=== PATIENT | female | born 1975 | race Caucasian/White ===

== ENCOUNTER 2018-10-21 21:51 | Emergency (ER) | payer OTHER ==
[2018-10-21 22:06] VITALS: BP 148/85; PULSE 92; TEMP 98.2; BMI 42.0
--- NOTE | 2018-10-21 23:58 | PDOC ---
History of Present Illness - General Chief Complaint: Hematuria Stated Complaint: BLOOD IN URINE Time Seen by Provider: 10/21/18 23:11 History Source: Patient Exam Limitations: No Limitations - History of Present Illness Initial Comments: Pt is a 43 yo F, with PMH of HTN and DM, who is presenting with complaints of dysuria and urgency with urination x2 hours prior to presentation. Pt states she also noticed the urine had a "pink tinge," and her LMP was over 2 years ago , so is certain it came from the urine. She has 1 stable sexual partner and is not concerned about STI testing at this time. She denies any unusual or foul- smelling discharge, and no vaginal lesions or pain. Pt states she has never had a UTI or these symptoms before. Pt denies any fevers/chills, headache, vision changes, chest pain, palpitations, SOB, nausea/vomiting, abdominal pain, diarrhea/constipation, or leg swelling. Social: Pt denies any cigarette, alcohol, or drug use. Pt denies any recent travel or sick contacts. Surgical: (last 11 years ago) Family: kidney stones in father. DM and HTN throughout family. 10/22/18 00:27 Past History - Travel Traveled outside of the country in the last 30 days: No Close contact w/someone who was outside of country & ill: No - Past Medical History Allergies/Adverse Reactions: Allergies Allergy/AdvReac Type Severity Reaction Status Date / Time No Known Allergies Allergy Verified 10/21/18 22:06 Home Medications: Ambulatory Orders Pantoprazole Sodium [Protonix -] 40 mg PO DAILY #7 tablet.ec 10/02/16 Cephalexin [Keflex] 500 mg PO BID 5 Days #9 capsule 10/22/18 Phenazopyridine HCl [Pyridium] 100 mg PO BID 2 Days #4 tablet 10/22/18 COPD: No Diabetes: Yes HTN: Yes Hypercholesterolemia: No Kidney Stones: No Other medical history: enlarged heart - Surgical History Abdominal Surgery: Yes () GI Surgery: No - Suicide/Smoking/Psychosocial Hx Smoking Status: No Smoking History: Former smoker Have you smoked in the past 12 months: No Number of Cigarettes Smoked Daily: 0 If you are a former smoker, when did you quit?: 2010 Information on smoking cessation initiated: No Hx Alcohol Use: No Drug/Substance Use Hx: No Substance Use Type: None Review of Systems - Review of Systems Able to Perform ROS?: Yes Is the patient limited [place]ib[place]ian proficient: No Constitutional: Yes: Weight Stable. No: Chills, Diaphoresis, Fever, Loss of Appetite, Weakness HEENTM: No: Recent change in vision, Nose Congestion, Throat Swelling Respiratory: No: Cough, Shortness of Breath Cardiac (ROS): No: Chest Pain, Lightheadedness, Syncope ABD/GI: No: Abdominal Distended, Constipated, Diarrhea, Nausea, Poor Appetite, Poor Fluid Intake, Vomiting, Abdominal cramping : Yes: Burning, Dysuria, Hematuria, Pain, Urgency. No: Discharge, Frequency, Flank Pain, Incontinence Musculoskeletal: No: Back Pain, Joint Pain, Muscle Weakness Integumentary: No: Rash Neurological: No: Headache, Numbness, Unsteady Gait, Dizziness Psychiatric: No: Sleep Pattern Change, Change in Appetite Endocrine: No: Increased Urine, Change in Weight Hematologic/Lymphatic: No: Anemia, Blood Clots, Easy Bleeding, Easy Bruising All Other Systems: Reviewed and Negative *Physical Exam - Vital Signs Last Vital Signs Temp Pulse Resp BP Pulse Ox 98.2 F 92 H 20 148/85 97 10/21/18 22:01 10/21/18 22:01 10/21/18 22:01 10/21/18 22:01 10/21/18 22:01 - Physical Exam General Appearance: Yes: Nourished, Appropriately Dressed, Obese. No: Apparent Distress HEENT: positive: EOMI, [place], Normal ENT Inspection, Normal Voice, Pharynx Normal , Hearing Grossly Normal. negative: Scleral Icterus (R), Scleral Icterus (L), Pharyngeal Erythema, Tonsillar Exudate, Tonsillar Erythema, Nasal Congestion Neck: positive: Trachea midline, Normal Thyroid, Supple. negative: Tender, Rigid, Lymphadenopathy (R), Lymphadenopathy (L) Respiratory/Chest: positive: Lungs Clear, Normal Breath Sounds. negative: Chest Tender, Respiratory Distress, Accessory Muscle Use Cardiovascular: positive: Regular Rhythm, Regular Rate, S1, S2. negative: Edema , JVD, Murmur Vascular Pulses: Carotid (R): 4+, Carotid (L): 4+ Gastrointestinal/Abdominal: positive: Normal Bowel Sounds, Flat, Soft. negative : Tender, Organomegaly, Pulsatile Mass Rectal Exam: positive: deferred Lymphatic: negative: Adenopathy, Tenderness Musculoskeletal: positive: Normal Inspection. negative: CVA Tenderness Extremity: positive: Normal Capillary Refill, Normal Inspection, Normal Range of Motion, Pelvis Stable. negative: Tender, Pedal Edema Integumentary: positive: Normal Color, Dry, Warm. negative: Jaundice, Clammy, Diaphoresis, Swelling Neurologic: positive: manager of maintenance II-XII NML intact, Fully Oriented, Alert, Normal Mood/ Affect, Normal Response, Motor Strength 5/5 Moderate Sedation - Procedure Monitoring Vital Signs: Procedure Monitoring Vital Signs Temperature 98.2 F 10/21/18 22:01 Pulse Rate 92 H 10/21/18 22:01 Respiratory Rate 20 10/21/18 22:01 Blood Pressure 148/85 10/21/18 22: O2 Sat by Pulse Oximetry (%) 97 10/21/18 22:01 Medical Decision Making - Medical Decision Making Pt was seen at bedside, also will be seen by attending Dr. Gipson. Pt presenting with complaints of dysuria and urgency with urination x2 hours prior to presentation. Pt states she also noticed the urine had a "pink tinge," and her LMP was over 2 years ago, so is certain it came from the urine. She has 1 stable sexual partner and is not concerned about STI testing at this time. She denies any unusual or foul-smelling discharge, and no vaginal lesions or pain. Pt states she has never had a UTI or these symptoms before. Pt denies any fevers /chills, headache, vision changes, chest pain, palpitations, SOB, nausea/ vomiting, abdominal pain, diarrhea/constipation, or leg swelling. PE showed stable vital signs, afebrile. No abdominal or CVA tenderness. Considering acute cystitis vs pyelonephritis vs kidney stones. Minimal concern for pyelo as pt afebrile, no CVA tenderness. Ordered work-up including UA, urine culture, urine . Pt denying pain control at this time. Will continue to reassess pt and monitor for symptomatic improvement. 10/22/18 00:16 UA significant for urinary tract infection (+blood, +leuk esterase +WBCs/RBCs) Providing first dose of Keflex in ER, sent additional Keflex and pyridium to pt pharmacy. Pt can be discharged to home with follow-up. Pt advised to follow-up with PCP in 1-2 days. Strict return precautions provided with pt understanding. 10/22/18 01:06 *DC/Admit/Observation/Transfer Diagnosis at time of Disposition: Cystitis - Discharge Dispostion Disposition: HOME Condition at time of disposition: Good Decision to Admit order: No - Prescriptions Prescriptions: Cephalexin [Keflex] 500 mg PO BID 5 Days #9 capsule Phenazopyridine HCl [Pyridium] 100 mg PO BID 2 Days #4 tablet - Referrals Referrals: Marielos Welsh MD [Primary Care Provider] - - Patient Instructions Printed Discharge Instructions: DI for Acute Cystitis Additional Instructions: You were seen in the ER today for burning with urination. The results of your labs today showed a urinary tract infection. Please follow-up with your primary care doctor within 1-2 days to discuss your visit and make sure your symptoms have improved. Please return to the ER if you have any worsening pain or pain that begins to radiate to your back, development of fevers or chills, loss of consciousness, inability to tolerate food or fluids, or any other concerns. We have sent an antibiotic (Keflex) and another medication (pyridium) to help with the discomfort with urination. Please take these medicines as prescribed. - Post Discharge Activity
[2018-10-22 00:33] LABS: URINE APPEARANCE SLCLOUDY; URINE BILIRUBIN NEGATIVE (<2.0 mg/dL); URINE COLOR LTYELLOW; URINE GLUCOSE (UA) NEGATIVE (NEGATIVE); URINE KETONE NEGATIVE (NEGATIVE); URINE LEUK ESTERASE 2+ (NEGATIVE); URINE NITRITE NEGATIVE (NEGATIVE); URINE PROTEIN NEGATIVE (NEGATIVE); URINE UROBILINOGEN NEGATIVE mg/dL (0.2-1.0)
[2018-10-22 00:42] LABS: HCG,QUALITATIVE URINE Negative
--- NOTE | 2018-10-22 00:45 | PDOC ---
Attending Attestation - Resident Resident Name: Judy Butts - ED Attending Attestation I have performed the following: I have examined & evaluated the patient, The case was reviewed & discussed with the resident, I agree w/resident's findings & plan - HPI HPI: 10/22/18 00:58 43 yo F, with PMH of HTN and DM, who is presenting with complaints of dysuria and urgency with urination x2 hours prior to presentation, a/w pink tinge when she wipes and urinates.. +suprapubic AP and lower back pain. LMP was over 2 years ago, so is certain it came from the urine. She has 1 stable sexual partner and is not concerned about STI testing at this time. no discharge or foul odor. no f/c, flank pain, vomiting or GI sx. 10/22/18 00:59 - Physicial Exam PE: 10/22/18 00:57 NAD, well appearing, PERRL, EOMI, MMM, nl conjunctiva, anicteric; neck supple. lungs clear, RRR, abdomen soft nontender. no CVAT. No peripheral edema. normal color for ethnicity, WWP. 10/22/18 00:57 - Medical Decision Making 10/22/18 00:59 hpi as documented VS wnl. no fever nonperitoneal, well appearing, nontoxic UA prelim +leuk esterase, copious WBCs and clinically UTI sx. rx pyridium for dysuria and keflex x 5 days first dose here return precautions given, such as s/s worsening infection/pyelo f/u urine culture. PCP followup pt verbalized understanding of impression and plan
[2018-10-22 00:54] LABS: EPI CELLS RARE /HPF (FEW); URINE BACTERIA MODERATE /hpf (NONE SEEN); URINE MUCUS RARE
[2018-10-22] MEDS ORDERED: CEPHALEXIN MONOHYDRATE 500 MG CAPSULE (UD) PO ONE (01:05)
[2018-10-22] MEDS ORDERED: CEPHALEXIN MONOHYDRATE 500 MG CAPSULE (UD) ONE (01:45)
== END 2018-10-22 01:50 | disposition home or self-care (01) ==
LOC: JERFT 21:51 → JER 21:51
DX: N30.00 Acute cystitis without hematuria (principal); I10 Essential (primary) hypertension; E11.9 Type 2 diabetes mellitus without complications
CPT/HCPCS: 81003; 81015; 84703; 87086; 87186; 99282-25

== ENCOUNTER 2019-05-06 10:00 | Inpatient (IN) | payer OTHER ==
[2019-04-26 11:22] VITALS: BMI 43.0
--- NOTE | 2019-05-06 13:24 | HP ---
Admitting History and Physical - Admission Chief Complaint: Morbid obesity History Source: Patient Limitations to Obtaining History: No Limitations - Past Medical History Cardiovascular: Yes: HTN ...LMP Comment: Aug 16 ...: No Endocrine: Yes: Diabetes Mellitus - Smoking History Smoking history: Former smoker Have you smoked in the past 12 months: No Aproximately how many cigarettes per day: 0 If you are a former smoker, when did you quit?: 2010 - Alcohol/Substance Use Hx Alcohol Use: No Home Medications - Allergies Allergies/Adverse Reactions: Allergies Allergy/AdvReac Type Severity Reaction Status Date / Time No Known Allergies Allergy Verified 05/06/19 11:42 - Home Medications Home Medications: Ambulatory Orders Amlodipine Besylate [Norvasc -] 10 mg PO DAILY 04/26/19 Biotin 10,000 mcg PO DAILY 04/26/19 Butalb/Acetaminophen/Caffeine [Swipjt-Nogujhhh-Afvd 50-300-40] 1 each PO PRN PRN 04/26/19 Hydrochlorothiazide [Hctz -] 25 mg PO ASDIR 04/26/19 Metformin HCl [Glucophage] 500 mg PO BID 04/26/19 Mv-Mins/Folic Acid/Guarana/Caf [One Daily Tablet] 1 each PO DAILY 04/26/19 Omeprazole Magnesium [Prilosec Otc] 20 mg PO PRN PRN 04/26/19 Docusate Sodium [Colace -] 100 mg PO TID #90 capsule 05/06/19 Famotidine [Pepcid] 20 mg PO BID #60 tablet 05/06/19 Ondansetron [Zofran -] 8 mg PO Q6H PRN #30 tablet 05/06/19 Oxycodone HCl/Acetaminophen [Percocet 5-325 mg Tablet] 1 - 2 tab PO Q6H #28 tab MDD 4 05/06/19 Review of Systems - Review of Systems Constitutional: denies: Chills, Fever Neck: reports: No Symptoms Cardiovascular: reports: No Symptoms Respiratory: reports: No Symptoms Gastrointestinal: reports: No Symptoms Neurological: reports: No Symptoms Pain Intensity: 0 Physical Examination Vital Signs: Vital Signs Temperature 98.0 F 05/06/19 11:46 Pulse Rate 88 05/06/19 11:46 Respiratory Rate 16 05/06/19 11:46 Blood Pressure 128/79 05/06/19 11:46 O2 Sat by Pulse Oximetry (%) 97 05/06/19 11:54 Constitutional: Yes: Calm Neck: Yes: WNL Cardiovascular: Yes: WNL Respiratory: Yes: Regular Gastrointestinal: Yes: Soft, Abdomen, Obese Neurological: Yes: Alert, Oriented Problem List - Problems (1) Morbid obesity due to excess calories Code(s): E66.01 - MORBID (SEVERE) OBESITY DUE TO EXCESS CALORIES (2) BMI 40.0-44.9, adult Code(s): Z68.41 - BODY MASS INDEX (BMI) 40.0-44.9, ADULT (3) Hypertension Code(s): I10 - ESSENTIAL (PRIMARY) HYPERTENSION (4) Diabetes mellitus type 2 in obese Code(s): E11.69 - TYPE 2 DIABETES MELLITUS WITH OTHER SPECIFIED COMPLICATION; E66.9 - OBESITY, UNSPECIFIED Assessment/Plan Laparoscopic possible open vertical sleeve gastrectomy possible liver biopsy upper endoscopy
[2019-05-06] MEDS ORDERED: ROPIVACAINE HCL 0.5% 30ML VIAL ONE (13:52)
[2019-05-06] MEDS ORDERED: MIDAZOLAM HCL 2 MG/2 ML SINGLE DOSE VIAL ONE (13:52)
[2019-05-06] MEDS ORDERED: PROPOFOL 20 ML ONE ×2 (14:01→15:34)
[2019-05-06] MEDS ORDERED: fentaNYL CITRATE 250 MCG/5 ML VIAL ONE (14:01)
[2019-05-06] MEDS ORDERED: ROCURONIUM BROMIDE 50 MG/5 ML VIAL ONE (14:01)
[2019-05-06] MEDS ORDERED: ONDANSETRON 4 MG/2 ML VIAL ONE (14:35)
[2019-05-06] MEDS ORDERED: DEXAMETHASONE SOD PHOSPHATE 4 MG/1 ML VIAL ONE (14:35)
[2019-05-06] MEDS ORDERED: ceFAZolin SODIUM 1 GM VIAL ONE (14:35)
[2019-05-06] MEDS ORDERED: NEOSTIGMINE METHYLSULFATE 0.5 MG/ML - 10 ML MDV ONE (15:26)
[2019-05-06] MEDS ORDERED: GLYCOPYRROLATE 0.2 MG/1 ML VIAL ONE ×2 (15:26→15:31)
[2019-05-06] MEDS ORDERED: BUPIVACAINE HCL/PF 0.25% (2.5MG/ML) 10 ML VIAL IJ ONE (15:26)
--- NOTE | 2019-05-06 15:31 | CONSULT ---
Consult Consult Specialty:: IM Reason for Consultation:: medical management - History of Present Illness Chief Complaint: weakness, anxiety. denies chest pain, SOB, palpittaions, nausea, vomiting, diarrhea, fever - History Source History Provided By: Patient Limitations to Obtaining History: No Limitations - Past Medical History Cardio/Vascular: Yes: HTN ...LMP Comment: Aug 16 ...: No Endocrine: Yes: Diabetes Mellitus - Alcohol/Substance Use Hx Alcohol Use: No - Smoking History Smoking history: Former smoker Have you smoked in the past 12 months: No Aproximately how many cigarettes per day: 0 If you are a former smoker, when did you quit?: 2010 Home Medications - Allergies Allergies/Adverse Reactions: Allergies Allergy/AdvReac Type Severity Reaction Status Date / Time No Known Allergies Allergy Verified 05/06/19 11:42 - Home Medications Home Medications: Ambulatory Orders Amlodipine Besylate [Norvasc -] 10 mg PO DAILY 04/26/19 Biotin 10,000 mcg PO DAILY 04/26/19 Butalb/Acetaminophen/Caffeine [Sqeawv-Umuhvrlq-Tgca 50-300-40] 1 each PO PRN PRN 04/26/19 Hydrochlorothiazide [Hctz -] 25 mg PO ASDIR 04/26/19 Metformin HCl [Glucophage] 500 mg PO BID 04/26/19 Mv-Mins/Folic Acid/Guarana/Caf [One Daily Tablet] 1 each PO DAILY 04/26/19 Omeprazole Magnesium [Prilosec Otc] 20 mg PO PRN PRN 04/26/19 Docusate Sodium [Colace -] 100 mg PO TID #90 capsule 05/06/19 Famotidine [Pepcid] 20 mg PO BID #60 tablet 05/06/19 Ondansetron [Zofran -] 8 mg PO Q6H PRN #30 tablet 05/06/19 Oxycodone HCl/Acetaminophen [Percocet 5-325 mg Tablet] 1 - 2 tab PO Q6H #28 tab MDD 4 05/06/19 Review of Systems - Review of Systems Constitutional: reports: No Symptoms Eyes: reports: No Symptoms HENT: reports: No Symptoms Neck: reports: No Symptoms Cardiovascular: reports: No Symptoms Respiratory: reports: No Symptoms Gastrointestinal: reports: No Symptoms Genitourinary: reports: No Symptoms Musculoskeletal: reports: No Symptoms Integumentary: reports: No Symptoms Neurological: reports: No Symptoms Hematology/Lymphatic: reports: No Symptoms Psychiatric: reports: No Symptoms Physical Exam Vital Signs: Vital Signs Temperature 98.0 F 05/06/19 11:46 Pulse Rate 88 05/06/19 11:46 Respiratory Rate 16 05/06/19 11:46 Blood Pressure 128/79 05/06/19 11:46 O2 Sat by Pulse Oximetry (%) 97 05/06/19 11:54 Constitutional: Yes: Well Nourished, No Distress, Obese Eyes: Yes: WNL HENT: Yes: WNL Neck: Yes: WNL Cardiovascular: Yes: WNL Respiratory: Yes: WNL Gastrointestinal: Yes: WNL Renal/: Yes: WNL Musculoskeletal: Yes: WNL Extremities: Yes: WNL Edema: No Integumentary: Yes: WNL Neurological: Yes: WNL ...Motor Strength: WNL Psychiatric: Yes: WNL Assessment/Plan 44 yo lady with morbid obesity. came in for gastric sleeve with Dr Roper. pain management. incentive spirometry. -GI, DVT prophylaxis. -HTN: on amlodipine 10 mg daily, -type 2 DM: on RISS. will resume oral meds when oral feeding restarted. -will f/u with blood work. -meds reviewed -assessment and plan discussed with pt.
--- NOTE | 2019-05-06 15:38 | OP ---
Operative Note - Note: Operative Date: 05/06/19 Pre-Operative Diagnosis: Morbid obesity. BMI 43. Hypertension. Diabetes mellitus type 2 Operation: Laparoscopic vertical sleeve gastrectomy. Laparoscopic wedge liver biopsy Post-Operative Diagnosis: Same as Pre-op (as well as hepatomegaly) Surgeon: Ed Roper [place] [employer] Supervisor: Khalif Salazar Anesthesia: General Specimens Removed: Greater curvature of stomach. Liver biopsy Estimated Blood Loss (mls): 30 Drains & Tubes with Location: 36 Fr Bougie Operative Report Dictated: Yes
[2019-05-06] MEDS ORDERED: METOCLOPRAMIDE HCL INJECTION 10 MG/2 ML VIAL IVPUSH SCH (15:45)
[2019-05-06] MEDS ORDERED: ACETAMINOPHEN 1000 MG/100 ML VIAL (NON FORMULARY) IVPB SCH (15:45)
[2019-05-06] MEDS ORDERED: PROMETHAZINE HCL 25 MG/1 ML VIAL IVPUSH PRN (16:01)
[2019-05-06] MEDS ORDERED: ONDANSETRON 4 MG/2 ML VIAL IVPUSH PRN (16:01)
[2019-05-06] MEDS ORDERED: oxyCODONE HCL 5 MG TABLET PO PRN ×2 (16:01)
[2019-05-06] MEDS ORDERED: METOCLOPRAMIDE HCL INJECTION 10 MG/2 ML VIAL ONE (16:14)
[2019-05-06] MEDS ORDERED: ACETAMINOPHEN INJECTION 200 ML IVPB ONE (16:14)
[2019-05-06 16:25] LABS: HEMOGLOBIN 15.2 GM/dl (10.7-15.3); MCHC 33.8 g/dl (32.0-36.0); MEAN CELL VOLUME 94.5 fl (80-96); MEAN PLT VOLUME 8.5 fl (7.5-11.1); PLATELET COUNT 295 K/MM3 (134-434); RBC 4.77 M/mm3 (3.60-5.2); RDW 12.3 % (11.6-15.6); WHITE BLOOD COUNT 10.5 K/mm3 (4.0-10.8)
[2019-05-06 16:43] LABS: ALBUMIN 3.6 g/dl (3.4-5.0); BILIRUBIN,TOTAL 0.9 mg/dl (0.2-1); CALCIUM 8.7 mg/dl (8.5-10); CREATININE 0.8 mg/dl (0.55-1.3); POTASSIUM 3.5 mmol/L (3.5-5.1); TOT PROT 7.8 g/dl (6.4-8.2)
[2019-05-06] MEDS ORDERED: FAMOTIDINE 20 MG PREMIXED IVPB IVPB ONE (16:43)
[2019-05-06] MEDS ORDERED: FAMOTIDINE 20 MG/50 ML IVPB 20 MG/50 ML MG IVPB ONE (16:46)
[2019-05-06] MEDS: ENOXAPARIN NA (PORCINE) 40 MG/0.4 ML DISP.SYRIN SQ SCH (21:26)
[2019-05-06] MEDS: ONDANSETRON 4 MG/2 ML VIAL IVPUSH SCH ×2 (21:27→22:59)
[2019-05-06] MEDS: METOCLOPRAMIDE HCL INJECTION 10 MG/2 ML VIAL IVPUSH SCH (21:27)
[2019-05-06] MEDS: ACETAMINOPHEN 1000 MG/100 ML VIAL (NON FORMULARY) IVPB SCH (21:27)
--- NOTE | 2019-05-06 21:34 | SPEC ---
DATE OF OPERATION: 05/06/2019 SURGEON: Ed Roper MD W[employer] MECHANICAL ENGINEER: Khalif Salazar MD PLACE OF SERVICE: [facility], [address] [place] [address] PREOPERATIVE DIAGNOSES: 1. Morbid obesity. 2. Hypertension. 3. Diabetes mellitus, type 2. 4. Body mass index of 43. POSTOPERATIVE DIAGNOSES: 1. Morbid obesity. 2. Hypertension. 3. Diabetes mellitus, type 2. 4. Body mass index of 43. 5. Hepatomegaly. PROCEDURE: 1. Diagnostic laparoscopy. 2. Laparoscopic vertical sleeve gastrectomy. 3. Laparoscopic wedge liver biopsy. ESTIMATED BLOOD LOSS: 30 mL. DRAINS: None. ANESTHESIA: GET. BOUGIE: Size 36-Romansh. REASON FOR PROCEDURE: This is a 44-year-old female who presented for weight loss options. After describing different options, she decided to proceed with laparoscopic, possible open vertical sleeve gastrectomy, possible liver biopsy, upper endoscopy. RISKS AND BENEFITS: After describing the different options for weight loss management, the patient decided to proceed with a laparoscopic, possible open vertical sleeve gastrectomy. The patient was seen by the respective subspecialties and cleared for surgery. The risks and benefits of the procedure were explained. These included bleeding, infection, hernia, [place], DVT, PE, injury to surrounding structures including the liver, colon, bowel, spleen, esophagus, vessel injury, nerve injury, weight regain, gastric leak, staple line leak, sleeve leak, obstruction, vitamin deficiency, hair loss and as some of the possible complications. The patient understood and signed informed consent. DESCRIPTION OF PROCEDURE: The patient was placed supine on the operating room table. The patient underwent general endotracheal intubation. The arms were brought out at 90 degrees and secured. A footboard was placed and the legs were secured laterally with padding. The abdomen was prepped and draped in the usual sterile fashion. A timeout was performed. An incision was made in the left upper quadrant and a Veress needle inserted. Pneumoperitoneum was established. Subsequently, the Veress needle was removed and a 5-mm trocar was placed under direct visualization with the laparoscope. The laparoscopic camera was then inserted and inspection of the abdominal cavity was performed. An incision was then made in the supraumbilical area and a 15-mm trocar was placed under direct visualization. A 5-mm trocar was then placed in the right upper quadrant and a 5-mm trocar was placed below the left subcostal margin. A stab wound was made in the subxiphoid area and a Chel clamp inserted and removed to dilate the tract. A Keshav liver retractor was inserted. The post was secured at the bedside by the nursing staff. The patient was placed in steep reverse Trendelenburg position and the Keshav liver retractor was used to secure the liver towards the anterior abdominal wall. The pylorus was identified and 6 cm proximal to it, the lesser sac was entered using the LigaSure device. All lateral attachments to the greater curvature of the stomach, including the short gastric vessels, were ligated using the LigaSure device toward the gastrosplenic and gastrophrenic ligaments. Once this was done in its entirety, it was confirmed that all tubes within the nasal or oropharyngeal cavity, including a temperature probe were removed by Anesthesia. The bougie was then inserted by Anesthesia. Transection of the stomach was then begun staying adjacent to the bougie but away from the angularis. Transection of the stomach was performed near the portion of the stomach where the lesser sac was entered. Two laparoscopic Endo-SUZAN black duke were used at this location. Laparoscopic Endo SUZAN purple staple loads were then used for the remainder of the transection until the greater curvature of the stomach was fully transected. This was done staying close to the bougie. Care was taken to stay away from the angle of His cephalad. The staple line was then inspected. Hemostasis was identified. A leak test was then performed. It was clamped distally to the staple line. Irrigation solution was placed in the left upper quadrant and air was insufflated by Anesthesia into the sleeve. No leaks were identified. No obstruction was identified. This was done through the entirety of the staple line. The stomach was suctioned and the bougie removed fully intact under direct visualization. At this point, the irrigation solution was suctioned and again, hemostasis was noted. A wedge liver biopsy was then performed. The left lobe of the liver was identified. A portion of the edge of the left lobe of the liver was grasped. Using electrocautery, a wedge of the left liver was excised. The specimen was removed and sent off the field. Hemostasis of the wedge liver biopsy site was attained and noted using electrocautery. The 15-mm supraumbilical trocar was then removed and the greater curvature specimen removed from the site using a sponge stick carvajal. A Noe-Wes device was then used to close the fascia with a 0 Vicryl suture at the site. Again, hemostasis was noted. The Keshav liver retractor was then removed under direct visualization. Pneumoperitoneum was desufflated. Hemostasis was noted at all incision sites and Marcaine was injected at all incision sites. A 3-0 Vicryl suture was used to close the deep subcutaneous tissue at the 15-mm incision site. All incision sites were closed using 4-0 Biosyn. Sterile dressings were applied. The patient tolerated the procedure well and was transferred to the recovery room in stable condition. Gaby BEAVER/[id number]
[2019-05-06] MEDS ORDERED: FAMOTIDINE 20 MG/50 ML IVPB 20 MG/50 ML MG IVPB SCH (22:00)
[2019-05-06] MEDS: HYDROmorphone HCl 2 MG/ML VIAL IVPB PRN (23:06)
[2019-05-07] MEDS: METOCLOPRAMIDE HCL INJECTION 10 MG/2 ML VIAL IVPUSH SCH ×3 (04:00→16:02)
[2019-05-07] MEDS: ONDANSETRON 4 MG/2 ML VIAL IVPUSH SCH ×5 (04:00→16:03)
[2019-05-07] MEDS: ACETAMINOPHEN 1000 MG/100 ML VIAL (NON FORMULARY) IVPB SCH ×2 (04:00→09:50)
[2019-05-07] MEDS: FAMOTIDINE 20 MG/50 ML IVPB 20 MG/50 ML MG IVPB SCH ×2 (06:09→16:24)
[2019-05-07] MEDS: INSULIN SLIDING SCALE (NOVOLOG) 1 VIAL SQ SCH ×4 (06:29→16:04)
[2019-05-07] MEDS ORDERED: INSULIN (NOVOLOG) ASPART 100 UNITS/ML 10ML VIAL ONE (06:35)
[2019-05-07 08:07] LABS: ALBUMIN 2.9 g/dl (3.4-5.0); BILIRUBIN,TOTAL 1.3 mg/dl (0.2-1); CALCIUM 7.9 mg/dl (8.5-10); CREATININE 0.9 mg/dl (0.55-1.3); HEMATOCRIT 34.7 % (32.4-45.2); HEMOGLOBIN 11.9 GM/dl (10.7-15.3); MCH 32.6 pg (25.7-33.7); MCHC 34.4 g/dl (32.0-36.0); MEAN CELL VOLUME 94.7 fl (80-96); MEAN PLT VOLUME 9.1 fl (7.5-11.1); PLATELET COUNT 307 K/MM3 (134-434); POTASSIUM 4.8 mmol/L (3.5-5.1); RBC 3.66 M/mm3 (3.60-5.2); TOT PROT 6.6 g/dl (6.4-8.2); WHITE BLOOD COUNT 13.5 K/mm3 (4.0-10.8)
[2019-05-07] MEDS: SODIUM CHLORIDE 1,000 ML IV SCH ×2 (08:42→16:02)
--- NOTE | 2019-05-07 09:41 | PN ---
Progress Note, Physician Chief Complaint: dizziness, weakness - Current Medication List Current Medications: Active Medications Acetaminophen (Ofirmev Injection -) 1,000 mg IVPB Q6H [facility] Stop: 05/07/19 10:01 Last Admin: 05/07/19 04:00 Dose: 1,000 mg Enoxaparin Sodium (Lovenox -) 40 mg SQ BID [facility] Last Admin: 05/06/19 21:26 Dose: 40 mg Hydromorphone HCl (Dilaudid Vial -) 1 mg IVPB Q3H PRN PRN Reason: PAIN LEVEL 4 - 6 Last Admin: 05/06/19 23:06 Dose: 1 mg Sodium Chloride (Normal Saline -) 1,000 mls @ 150 mls/hr IV ASDIR [facility] Last Admin: 05/07/19 08:42 Dose: Not Given Famotidine/Sodium Chloride (Pepcid 20 Mg Premixed Ivpb -) 20 mg in 50 mls @ 100 mls/hr IVPB Q12H [facility] Last Admin: 05/07/19 06:09 Dose: 100 mls/hr Insulin Aspart (Novolog Vial Sliding Scale -) 1 vial SQ TIDAC [facility]; Protocol Last Admin: 05/07/19 08:42 Dose: Not Given Metoclopramide HCl (Reglan Injection -) 10 mg IVPUSH Q6H [facility] Last Admin: 05/07/19 04:00 Dose: 10 mg Ondansetron HCl (Zofran Injection) 4 mg IVPUSH Q4H [facility] Last Admin: 05/07/19 08:42 Dose: Not Given Oxycodone HCl (Roxicodone -) 5 mg PO Q4H PRN PRN Reason: PAIN LEVEL 1-5 Oxycodone HCl (Roxicodone -) 10 mg PO Q4H PRN PRN Reason: PAIN LEVEL 6-10 - Objective Vital Signs: Vital Signs Temperature 98.2 F 05/07/19 06:00 Pulse Rate 105 H 05/07/19 06:00 Respiratory Rate 05/07/19 06:00 Blood Pressure 101/70 05/07/19 06:00 O2 Sat by Pulse Oximetry (%) 96 05/07/19 06:00 Constitutional: Yes: Anxious, Obese Eyes: Yes: WNL HENT: Yes: WNL Neck: Yes: WNL Cardiovascular: Yes: WNL Respiratory: Yes: WNL Gastrointestinal: Yes: WNL Genitourinary: Yes: WNL Musculoskeletal: Yes: WNL Extremities: Yes: WNL Edema: No Peripheral Pulses WNL: Yes Integumentary: Yes: WNL Neurological: Yes: WNL ...Motor Strength: WNL Psychiatric: Yes: WNL Labs: CBC, BMP 05/07/19 06:57 05/07/19 06:57 Assessment/Plan 44 yo lady with morbid obesity. came in for gastric sleeve with Dr Roper. pain management. incentive spirometry. today c/o dizziness, weakness. unable to get out of bed. cont IV fluids. amlodipine held due to hypotension. -GI, DVT prophylaxis. -type 2 DM: on RISS. will resume oral meds when oral feeding restarted. -will f/u with blood work. -meds reviewed -assessment and plan discussed with pt. and Dr Roper.
[2019-05-07] MEDS: ENOXAPARIN NA (PORCINE) 40 MG/0.4 ML DISP.SYRIN SQ SCH (09:50)
[2019-05-07] MEDS ORDERED: amLODIPine BESYLATE 10 MG TABLET (FP) PO SCH (10:00)
[2019-05-07] MEDS ORDERED: MECLIZINE HCL 25 MG TABLET (FP) PO ONE (11:43)
[2019-05-07 15:39] VITALS: BP 116/71; PULSE 97; TEMP 97.5
[2019-05-07] MEDS: HYDROmorphone HCl 2 MG/ML VIAL IVPB PRN (16:03)
[2019-05-07 16:29] LABS: CREATININE 1.1 mg/dl (0.55-1.3); POTASSIUM 4.5 mmol/L (3.5-5.1)
--- NOTE | 2019-05-09 14:30 | PATH ---
Surgical Pathology Report Patient Name: LOUIE FIORE Med. Rec. #: [id number] /Age/Gender: 1975 (Age: 44) / F Account: [id number] Location: [facility] Taken: 05/06/2019 Received: 05/06/2019 Reported: 05/09/2019 Physicians: Ed Roper M.D. Specimen(s) Received A: GREATER CURVATURE STOMACH B: LIVER BIOPSY Clinical History Morbid obesity Final Diagnosis A. GREATER CURVATURE OF STOMACH , LAPAROSCOPIC GASTRIC SLEEVE EXCISION: PORTION OF STOMACH SHOWING MINIMAL CHRONIC MUCOSAL INFLAMMATION. IMMUNOSTAIN IS NEGATIVE FOR H. PYLORI ORGANISMS. B. LIVER, BIOPSY: LIVER SHOWING MODERATE STEATOSIS (~25%). TRICHROME STAIN SHOWS NO APPRECIABLE INCREASE IN FIBROSIS. IRON STAIN SHOWS NO INCREASE IN IRON DEPOSITS. Electronically Signed Ann Martinez M.D. Gross Description A. Received in formalin, labeled "greater curvature stomach," is a 74 gram, 18.0 x 2.8 x 2.4 cm. portion of stomach with a stapled margin of resection. The serosa is syed-weiss with minimal attached fat. The mucosa is syed-pink with normal folds. No mucosal masses are identified. Stockroom Associate sections are submitted in one cassette. B. Received in formalin labeled "liver biopsy," is a 3.0 x 0.8 x 0.5 cm syed portion of soft tissue, consistent with a liver biopsy. The specimen is bisected and entirely submitted in one cassette. /05/07/2019 saudi05/07/2019
== END 2019-05-07 17:51 | disposition home or self-care (01) | DRG 403 ==
LOC: FM/S 10:59
PROVIDERS: ADMIT Surgery; ATTEND Surgery
PROC: 0DB64Z3 Excision of Stomach, Percutaneous Endoscopic Approach, Vertical (ICD-10-PCS; principal; 2019-05-06 14:51)
PROC: 0FB24ZX Excision of Left Lobe Liver, Percutaneous Endoscopic Approach, Diagnostic (ICD-10-PCS; 2019-05-06 14:51)
DX: E66.01 Morbid (severe) obesity due to excess calories (principal); Z68.41 Body mass index [BMI] 40.0-44.9, adult; I10 Essential (primary) hypertension; E11.9 Type 2 diabetes mellitus without complications; R16.0 Hepatomegaly, not elsewhere classified
CPT/HCPCS: 36415; 74241-TC-FY; 80048; 80053; 82962; 85027; 88305-TC; 88313-TC; 94760; J0131; J7030

== ENCOUNTER 2019-05-07 21:54 | Emergency (ER) | payer OTHER ==
[2019-05-07 22:09] VITALS: TEMP 98.2; BMI 41.8
[2019-05-07] MEDS ORDERED: SODIUM CHLORIDE 0.9% 500 ML INFUS.BAG IV ONE (23:27)
[2019-05-07] MEDS ORDERED: ACETAMINOPHEN 1000 MG/100 ML VIAL (NON FORMULARY) IVPB ONE (23:27)
--- NOTE | 2019-05-07 23:49 | PDOC ---
History of Present Illness - General Chief Complaint: Pain, Acute Stated Complaint: ABD BLEED/SURGERY Time Seen by Provider: 05/07/19 22:43 - History of Present Illness Initial Comments: Arina Clay is a 44yo woman POD #1s/p sleeve gastrectomy and wedge liver biopsy, d/c today from [facility], who presents with bleeding from one of her laparoscopic incisions and increased abdominal bloating and pain. She states that she got home around 5:30 this evening, and she fell asleep immediately after getting home. She says she woke up "in a pool of blood" and with increased pain. The bleeding soaked through multiple paper towels at home but has since stopped. She did not take any of her prescribed oxycodone as it made her sleepy. She says that the pain is severe at this point, but she does not want any medication that will make her sleep. She additionally reports that she feels her abdomen is increasingly bloated since she left the hospital this afternoon. She reports that she has been drinking water and had some chicken broth today without difficulty. She denies nausea, vomtiing, fever, or any other changes in her overall health. Past History - Past Medical History Allergies/Adverse Reactions: Allergies Allergy/AdvReac Type Severity Reaction Status Date / Time No Known Allergies Allergy Verified 05/07/19 22:08 Home Medications: Ambulatory Orders Amlodipine Besylate [Norvasc -] 10 mg PO DAILY 04/26/19 Biotin 10,000 mcg PO DAILY 04/26/19 Butalb/Acetaminophen/Caffeine [Jscyri-Tzhovthv-Lcse 50-300-40] 1 each PO PRN PRN 04/26/19 Hydrochlorothiazide [Hctz -] 25 mg PO ASDIR 04/26/19 Metformin HCl [Glucophage] 500 mg PO BID 04/26/19 Mv-Mins/Folic Acid/Guarana/Caf [One Daily Tablet] 1 each PO DAILY 04/26/19 Omeprazole Magnesium [Prilosec Otc] 20 mg PO PRN PRN 04/26/19 Docusate Sodium [Colace -] 100 mg PO TID #90 capsule 05/06/19 Famotidine [Pepcid] 20 mg PO BID #60 tablet 05/06/19 Ondansetron [Zofran -] 8 mg PO Q6H PRN #30 tablet 05/06/19 Oxycodone HCl/Acetaminophen [Percocet 5-325 mg Tablet] 1 - 2 tab PO Q6H #28 tab MDD 4 05/06/19 Anemia: No Asthma: No Cancer: No Cardiac Disorders: Yes (enlarged heart) CVA: No COPD: No CHF: No Dementia: No Diabetes: Yes GI Disorders: Yes (acid reflux) Disorders: Yes (UTI-ESBL 2018) HTN: Yes Hypercholesterolemia: No Kidney Stones: No Liver Disease: No Seizures: No Thyroid Disease: No - Surgical History Abdominal Surgery: Yes () Appendectomy: No Cardiac Surgery: No Cholecystectomy: No GI Surgery: No Lung Surgery: No Neurologic Surgery: No Orthopedic Surgery: No - Suicide/Smoking/Psychosocial Hx Smoking Status: No Smoking History: Unknown if ever smoked Have you smoked in the past 12 months: No Number of Cigarettes Smoked Daily: 0 If you are a former smoker, when did you quit?: 2010 Information on smoking cessation initiated: No Hx Alcohol Use: No Drug/Substance Use Hx: No Substance Use Type: None Hx Substance Use Treatment: No Review of Systems - Review of Systems Comments:: General: No fevers, no chills, no weight or appetite change, no malaise HEENT: No changes in vision, no changes in hearing, no congestion, no sore throat CV: No chest pain, no palpitations, no LE edema Pulm: No SOB, no cough, no wheezing GI: No nausea or vomiting, no change in bowel habits, no melena. See HPI : No frequency, no urgency, no dysuria Musc: No back pain, no joint swelling, no recent injury Skin: No rash, no lesions, no erythema Endo: No excessive thirst, no heat/cold intolerance Heme: No unusual bruising or bleeding, no swollen glands Neuro: No syncope, no numbness/tingling, no focal weakness Vasc: No claudication Psych: No recent change in mood, no SI or HI *Physical Exam - Vital Signs Last Vital Signs Temp Pulse Resp BP Pulse Ox 98.2 F 103 H 16 132/75 98 05/07/19 22:06 05/07/19 22:08 05/07/19 22:06 05/07/19 22:08 05/07/19 22:08 - Physical Exam Comments: General: Comfortable, no acute distress HEENT: PERRL, EOMI, MMM, voice normal Cards: RRR, no murmur appreciated Pulm: Comfortable on room air, clear to auscultation bilaterally Abd: Soft, appropriately tender, mildly distended c/w lap surgery. Laparoscopic incisions w/ clean dressings in place aside from periumbilical incision, which has some blood staining on the dressing. Dressing removed, incision clean and intact w/o erythema or drainage. Ext: Atraumatic. No LE edema. ROM intact Vasc: Extremities WWP Neuro: A&Ox3, CN grossly intact, normal speech, motor/sensory grossly intact and symmetric Psych: Mood appropriate to situation ED Treatment Course - LABORATORY CBC & Chemistry Diagram: 05/07/19 23:55 05/07/19 23:55 - RADIOLOGY Radiology Studies Ordered: Category Date Time Status ABDOMEN & PELVIS CT WITH CONTR [CT] Stat CT Scan 05/07/19 23:26 Ordered Medical Decision Making - Medical Decision Making 05/07/19 23:49 Arina Clay is a 44yo woman POD #1s/p sleeve gastrectomy and wedge liver biopsy, d/c today from [facility], who presents with bleeding from one of her laparoscopic incisions and increased abdominal bloating and pain since being discharged home from the hospital today. - Benign postop exam. Abdomen soft, no significant bruising. Blood staining on bandage but no active bleeding. Most likely expected postoperative course - CBC, CMP ordered to evaluate - Declines narcotic pain medication - May need CT if bleeding worsens 05/08/19 00:17 - Spoke to Dr Roper. Recommending against CT unless actively bleeding - Will review labs when completed 05/08/19 02:01 - Labs w/ drop in hgb to 10.5 from 11. No other concerning changes. Drop in hgb not unexpected following surgery - Reassessed. No active bleeding. Pt reports bleeding only occurs when standing up, changing position. Likely small hematoma underlying - Lengthy discussion regarding post-op discomforts, pain control, home care, and follow up. Discussed return precautions in detail. Ms Clay feels improved and agrees with plan to discharge home. Discussed with Dr Alfonzo Segal PGY2 *DC/Admit/Observation/Transfer Diagnosis at time of Disposition: S/P laparoscopic sleeve gastrectomy - Discharge Dispostion Disposition: HOME Condition at time of disposition: Stable Decision to Admit order: No - Referrals Referrals: Marielos Welsh MD [Primary Care Provider] - Ed Roper MD [Staff Physician] - - Patient Instructions Printed Discharge Instructions: DI for Vertical Sleeve Gastrectomy Additional Instructions: Discharge Instructions: You were seen in the emergency department for bleeding from your surgical wound and stomach bloating. Your blood tests did not show any concerning changes compared to your hospitalization. Your bleeding is likely due to a small collection of blood under the skin from your surgery and will stop within a day or two. Home Care and Follow Up: - Follow all the instructions given to you by your surgeon - If you feel the oxycodone dose you were prescribed is too strong, consider taking 1/2 a pill along with an additional Tylenol (500-650mg). If you do this, make sure you do not take more than 4000mg of acetaminophen (Tylenol) per day. - Bloating following surgery is common. This should resolve over the next 3-4 days. Moving around may help relieve this feeling more quickly. - You may still see bleeding for the next day or two. If the bleeding becomes excessive, starts to "pump" out, or soaks through numerous abdominal pads within a short period of time, please seek immediate medical care. - If the bleeding does not seem to be slowing by tomorrow or the next day, please call your surgeon to schedule an urgent appointment. - Seek immediate medical care if you have worsening symptoms, you are unable to tolerate liquids, you become dehydrated, you have lightheadedness or fainting, or you have any other medical emergency. - Post Discharge Activity
[2019-05-07] MEDS ORDERED: ACETAMINOPHEN INJECTION 100 ML IVPB ONE (23:59)
[2019-05-08 00:10] LABS: HEMATOCRIT 30.4 % (32.4-45.2); HEMOGLOBIN 10.5 GM/dL (10.7-15.3); MCH 32.4 pg (25.7-33.7); MCHC 34.5 g/dl (32.0-36.0); MEAN CELL VOLUME 93.9 fl (80-96); MEAN PLT VOLUME 8.6 fl (7.5-11.1); PLATELET COUNT 283 K/MM3 (134-434); RBC 3.24 M/mm3 (3.60-5.2); WHITE BLOOD COUNT 13.7 K/mm3 (4.0-10.0)
[2019-05-08 00:11] LABS: BASO % 0.4 % (0-2.0); LYMPH % 18.1 % (8-40); MONO % 6.6 % (3.8-10.2); NEUT % 74.9 % (42.8-82.8)
[2019-05-08 00:40] LABS: ALBUMIN 3.3 g/dl (3.4-5.0); BILIRUBIN,TOTAL 0.6 mg/dL (0.2-1); BLOOD UREA NITROGEN 19.8 mg/dL (7-18); CALCIUM 8.3 mg/dL (8.5-10.1); POTASSIUM 4.3 mmol/L (3.5-5.1); TOT PROT 7.4 g/dl (6.4-8.2)
--- NOTE | 2019-05-08 01:04 | PDOC ---
Documentation entered by Ilana Alvarado SCRIBE, acting as scribe for Halie Mejía MD. Halie Mejía MD: This documentation has been prepared by the ismaelibe, Ilana Alvarado SCRIBE, under my direction and personally reviewed by me in its entirety. I confirm that the documentation accurately reflects all work, treatment, procedures, and medical decision making performed by me. Attending Attestation - Resident Resident Name: Tonja Segal - ED Attending Attestation I have performed the following: I have examined & evaluated the patient, The case was reviewed & discussed with the resident, I agree w/resident's findings & plan, Exceptions are as noted - HPI HPI: 05/08/19 00:11 The patient is a 44 year old female with a past medical history significant for HTN, DM2, and s/p Laparoscopic sleeve gastrectomy (by Dr. Roper) presents to the emergency department with bleeding from the incision site. The patient presents with bleeding from the incision site since after being discharged from the hospital about 6 hours [employer]. The patient reports she has soaked through multiple paper towels at home. Allergies: NKDA PCP: Dr. Welsh. - Physicial Exam PE: 05/08/19 01:[address] Segal's physicial exam - Medical Decision Making 05/07/19 23:[address] Roper. 05/08/19 00:[address] Roper. and he recommends pressure dressing,reassurance and d/c home 05/08/19 01:02
[2019-05-08 03:50] VITALS: BP 135/80; PULSE 95
== END 2019-05-08 02:19 | disposition home or self-care (01) ==
LOC: JER 21:54
PROC: 3E033NZ Introduction of Analgesics, Hypnotics, Sedatives into Peripheral Vein, Percutaneous Approach (ICD-10-PCS; principal; 2019-05-07)
PROC: 3E0337Z Introduction of Electrolytic and Water Balance Substance into Peripheral Vein, Percutaneous Approach (ICD-10-PCS; 2019-05-07)
DX: K91.840 Postprocedural hemorrhage of a digestive system organ or structure following a digestive system procedure (principal); Z98.84 Bariatric surgery status; I10 Essential (primary) hypertension; E11.9 Type 2 diabetes mellitus without complications; Z79.84 Long term (current) use of oral hypoglycemic drugs; K21.9 Gastro-esophageal reflux disease without esophagitis
CPT/HCPCS: 36415; 80053; 85025; 96374; 99283-25; J0131

== ENCOUNTER 2019-09-26 14:02 | Inpatient (IN) | payer OTHER ==
[2019-09-26 14:13] VITALS: BMI 35.2
[2019-09-26] MEDS ORDERED: KETOROLAC TROMETHAMINE 60 MG/2 ML VIAL IM ONE (14:13)
--- NOTE | 2019-09-26 14:13 | PDOC ---
Rapid Medical Evaluation Time Seen by Provider: 09/26/19 14:08 Medical Evaluation: Allergies Allergy/AdvReac Type Severity Reaction Status Date / Time No Known Allergies Allergy Verified 05/07/19 22:08 09/26/19 14:08 Pt c/o: worsening rt arm pain now radiating to rt neck, denies injury or prev s/ s Pt on brief exam: reproducible pain to ant aspect of rt shoulder, moving fingers actively, noted resistance when flexing elbow and shoulder, no edema or skin discoloration Pt ordered fOR: toradol im Pt to proceed to the ED Discharge Disposition - Diagnosis Right subclavian vein thrombosis - Discharge Dispostion Disposition: HOME Condition at time of disposition: Good - Referrals - Patient Instructions - Post Discharge Activity
[2019-09-26] MEDS ORDERED: KETOROLAC TROMETHAMINE 60 MG/2 ML VIAL ONE (16:14)
[2019-09-26 16:17] LABS: BASO % 0.7 % (0-2.0); EOS % 1.3 % (0-4.5); HEMATOCRIT 43.8 % (32.4-45.2); HEMOGLOBIN 14.8 GM/dL (10.7-15.3); LYMPH % 19.2 % (8-40); MCH 30.4 pg (25.7-33.7); MCHC 33.8 g/dl (32.0-36.0); MEAN PLT VOLUME 8.5 fl (7.5-11.1); NEUT % 71.8 % (42.8-82.8); PLATELET COUNT 335 K/MM3 (134-434); RBC 4.87 M/mm3 (3.60-5.2); RDW 13.9 % (11.6-15.6); WHITE BLOOD COUNT 10.4 K/mm3 (4.0-10.0)
[2019-09-26 16:41] LABS: INR 1.06 (0.83-1.09); PROTHROMBIN TIME (PATIENT) 12.5 SEC (9.7-13.0)
[2019-09-26 16:44] LABS: ACTIVATED PTT 36.4 SECONDS (25.2-36.5)
[2019-09-26 16:50] LABS: ALBUMIN 3.8 g/dl (3.4-5.0); BILIRUBIN,TOTAL 0.5 mg/dL (0.2-1); CALCIUM 9.9 mg/dL (8.5-10.1); CREATININE 0.9 mg/dL (0.55-1.3); POTASSIUM 3.2 mmol/L (3.5-5.1); TOT PROT 8.8 g/dl (6.4-8.2)
--- NOTE | 2019-09-26 18:29 | PDOC ---
History of Present Illness <Mayelin Leonardo - Last Filed: 09/26/19 19:58> - History of Present Illness Initial Comments: 09/26/19 16:42 Ms. Clay is a 44 yo F with a pmhx of DM, HTN, and GERD presenting with a 3 day hx of progressively worsening R arm pain and weakness. Per the patient, 3 days ago her son noticed she was slurring her speech while talking to him. The episode lasted about 15 minutes and then completely resolved. Around the same time as the episode of slurred speech the patient also began having R arm pain and weakness which has gotten progressively worse. She comes in today because she is unable to move the R arm at all. On ROS the pt endorses having chills, R shoulder pain, R arm weakness and intermittent numbness and tingling in her R hand. She denies CP, SOB, weakness/ numbness/ tingling in any of her other extremities. <Arianne Chanel - Last Filed: 10/30/19 15:09> - General Chief Complaint: Pain Stated Complaint: RT. SHOULDER PAIN Time Seen by Provider: 09/26/19 14:08 Past History <Mayelin Leonardo - Last Filed: 09/26/19 19:58> - Past Medical History Anemia: No Asthma: No Cancer: No Cardiac Disorders: Yes (enlarged heart) CVA: No COPD: No CHF: No Dementia: No Diabetes: Yes GI Disorders: Yes (acid reflux) Disorders: Yes (UTI-ESBL 2018) HTN: Yes Hypercholesterolemia: No Kidney Stones: No Liver Disease: No Seizures: No Thyroid Disease: No - Surgical History Abdominal Surgery: Yes () Appendectomy: No Cardiac Surgery: No Cholecystectomy: No GI Surgery: No Lung Surgery: No Neurologic Surgery: No Orthopedic Surgery: No - Psycho Social/Smoking Cessation Hx Smoking Status: No Smoking History: Never smoked Have you smoked in the past 12 months: No Number of Cigarettes Smoked Daily: 0 If you are a former smoker, when did you quit?: 2010 Information on smoking cessation initiated: No Hx Alcohol Use: No Drug/Substance Use Hx: No Substance Use Type: None Hx Substance Use Treatment: No <Arianne Chanel - Last Filed: 10/30/19 15:09> - Past Medical History Allergies/Adverse Reactions: Allergies Allergy/AdvReac Type Severity Reaction Status Date / Time No Known Allergies Allergy Verified 09/26/19 14:08 Home Medications: Ambulatory Orders Amlodipine Besylate [Norvasc -] 10 mg PO DAILY #30 tablet 09/29/19 Apixaban [Eliquis] 10 mg PO Q12H #28 tablet 09/29/19 Atorvastatin Ca [Lipitor] 40 mg PO HS #30 tablet 09/29/19 Hydrochlorothiazide [Hctz -] 25 mg PO DAILY #30 tablet 09/29/19 Metformin HCl [Glucophage] 500 mg PO BID #60 tablet 09/29/19 Topiramate 25 mg PO BID #10 tablet 09/29/19 Review of Systems - Review of Systems Constitutional: Yes: Chills. No: Fever HEENTM: No: Eye Pain, Double Vision, Throat Pain, Throat Swelling Respiratory: No: Cough, Shortness of Breath Cardiac (ROS): No: Chest Pain ABD/GI: Yes: Nausea. No: Constipated, Diarrhea, Vomiting : No: Burning, Dysuria Musculoskeletal: Yes: Muscle Pain, Muscle Weakness. No: Back Pain Integumentary: No: Dryness, Erythema, Rash Neurological: Yes: Numbness, Tingling, Tremors, Weakness All Other Systems: Reviewed and Negative <Arianne Chanel - Last Filed: 10/30/19 15:09> *Physical Exam - Vital Signs Last Vital Signs Temp Pulse Resp BP Pulse Ox 98 F 92 H 20 127/86 100 09/26/19 14:09 09/26/19 16:44 09/26/19 16:44 09/26/19 16:44 09/26/19 16:44 <Mayelin Leonardo - Last Filed: 09/26/19 19:58> - Vital Signs Last Vital Signs Temp Pulse Resp BP Pulse Ox 98 F 100 H 20 110/93 99 09/26/19 14:09 09/26/19 14:09 09/26/19 14:09 09/26/19 14:09 09/26/19 15:53 - Physical Exam General Appearance: Yes: Nourished, Appropriately Dressed, Mild Distress HEENT: positive: EOMI, [place], Normal ENT Inspection, Normal Voice, Symmetrical, Pharynx Normal Neck: positive: Trachea midline, Normal Thyroid, Supple. negative: Tender Respiratory/Chest: positive: Lungs Clear, Normal Breath Sounds. negative: Respiratory Distress, Accessory Muscle Use Cardiovascular: positive: Regular Rhythm, Regular Rate, S1, S2. negative: Murmur Gastrointestinal/Abdominal: positive: Normal Bowel Sounds, Flat. 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 ) <Arianne Chanel - Last Filed: 10/30/19 15:09> ED Treatment Course - LABORATORY CBC & Chemistry Diagram: 09/26/19 15:43 09/26/19 15:43 - ADDITIONAL ORDERS Additional order review: Laboratory Results 09/26/19 09/26/19 09/26/19 15:43 15:43 15:43 PT with INR INR PTT (Actin FS) Sodium 137 Potassium 3.2 L Chloride 97 L Carbon Dioxide 30 Anion Gap 9 BUN 20.0 H Creatinine 0.9 Est GFR (CKD-EPI)AfAm 89.50 Est GFR (CKD-EPI)NonAf 77.22 Random Glucose 141 H Calcium 9.9 Total Bilirubin 0.5 AST 20 ALT 24 Alkaline Phosphatase 71 Creatine Kinase 50 Troponin I < 0.02 Total Protein 8.8 H Albumin 3.8 Triglycerides 231 H Cholesterol 237 H Total LDL Cholesterol 157 H HDL Cholesterol 32 L Blood Type O POSITIVE Antibody Screen Negative 09/26/19 15:43 PT with INR 12.50 INR 1.06 PTT (Actin FS) 36.4 Sodium Potassium Chloride Carbon Dioxide Anion Gap BUN Creatinine Est GFR (CKD-EPI)AfAm Est GFR (CKD-EPI)NonAf Random Glucose Calcium Total Bilirubin AST ALT Alkaline Phosphatase Creatine Kinase Troponin I Total Protein Albumin Triglycerides Cholesterol Total LDL Cholesterol HDL Cholesterol Blood Type Antibody Screen 09/26/19 15:43 RBC 4.87 MCV 90.0 MCHC 33.8 RDW 13.9 MPV 8.5 Neutrophils % 71.8 Lymphocytes % 19.2 Monocytes % 7.0 Eosinophils % 1.3 D Basophils % 0.7 - RADIOLOGY Radiology Studies Ordered: Category Date Time Status CXRPORT [CHEST X-RAY PORTABLE*] [RAD] Stat Radiology 09/26/19 19:45 Ordered <Mayelin Leonardo - Last Filed: 09/26/19 19:58> - LABORATORY CBC & Chemistry Diagram: 09/27/19 06:46 09/27/19 06:46 - ADDITIONAL ORDERS Additional order review: Laboratory Results 09/26/19 12 15:43 15:43 PT with INR 12.50 INR 1.06 Creatine Kinase 50 Troponin I < 0.02 09/26/19 15:43 RBC 4.87 MCV 90.0 MCHC 33.8 RDW 13.9 MPV 8.5 Neutrophils % 71.8 Lymphocytes % 19.2 Monocytes % 7.0 Eosinophils % 1.3 D Basophils % 0.7 <Arianne Chanel - Last Filed: 10/30/19 15:09> Medical Decision Making - Medical Decision Making 09/26/19 18:29 Ms. Clay is a 44 yo F with a pmhx of DM, HTN, and GERD presenting with a 3 day hx of progressively worsening R arm pain and weakness concern for TIA vs RUE venous thrombosis given the pt's multiple RF including hx of HTN, DM and family hx of stroke in mother at age 45 and ND in uncle at age 40. Pt was also a 1ppd smoker for 20 years, just quit 5y ago. Physical exam was significant for TTP in the RUE and RUE diameter > LUE. Will obtain: - EKG - T+S - CT head - Troponin - lipid panel - coags - UA - duplex RUE - R shoulder x-ray 09/26/19 18:45 CT of head without evidence of hemorrhage or acute pathologic changes. 09/26/19 18:53 will rassess pt once duplex and xray reads are available. <Arianne Chanel - Last Filed: 10/30/19 15:09> Discharge - Discharge Information Problems reviewed: Yes <Mayelin Leonardo - Last Filed: 09/26/19 19:58> <Arianne Chanel - Last Filed: 10/30/19 15:09> - Discharge Information Clinical Impression/Diagnosis: Right subclavian vein thrombosis Condition: Good Disposition: HOME
--- NOTE | 2019-09-26 19:16 | PDOC ---
*Physical Exam - Vital Signs Last Vital Signs Temp Pulse Resp BP Pulse Ox 98 F 92 H 20 127/86 100 09/26/19 14:09 09/26/19 16:44 09/26/19 16:44 09/26/19 16:44 09/26/19 16:44 ED Treatment Course - LABORATORY CBC & Chemistry Diagram: 09/26/19 15:43 09/26/19 15:43 - ADDITIONAL ORDERS Additional order review: Laboratory Results 09/26/19 09/26/19 09/26/19 15:43 15:43 15:43 PT with INR INR PTT (Actin FS) Sodium 137 Potassium 3.2 L Chloride 97 L Carbon Dioxide 30 Anion Gap 9 BUN 20.0 H Creatinine 0.9 Est GFR (CKD-EPI)AfAm 89.50 Est GFR (CKD-EPI)NonAf 77.22 Random Glucose 141 H Calcium 9.9 Total Bilirubin 0.5 AST 20 ALT 24 Alkaline Phosphatase 71 Creatine Kinase 50 Troponin I < 0.02 Total Protein 8.8 H Albumin 3.8 Triglycerides 231 H Cholesterol 237 H Total LDL Cholesterol 157 H HDL Cholesterol 32 L Blood Type O POSITIVE Antibody Screen Negative 09/26/19 15:43 PT with INR 12.50 INR 1.06 PTT (Actin FS) 36.4 Sodium Potassium Chloride Carbon Dioxide Anion Gap BUN Creatinine Est GFR (CKD-EPI)AfAm Est GFR (CKD-EPI)NonAf Random Glucose Calcium Total Bilirubin AST ALT Alkaline Phosphatase Creatine Kinase Troponin I Total Protein Albumin Triglycerides Cholesterol Total LDL Cholesterol HDL Cholesterol Blood Type Antibody Screen 09/26/19 15:43 RBC 4.87 MCV 90.0 MCHC 33.8 RDW 13.9 MPV 8.5 Neutrophils % 71.8 Lymphocytes % 19.2 Monocytes % 7.0 Eosinophils % 1.3 D Basophils % 0.7 Medical Decision Making - Medical Decision Making 09/26/19 19:[address] Chanel. Will f/u US arm and Xray, dispo accordingly. 09/26/19 19:35 Upper extremity US positive for subclavian DVT. Will admit. 09/26/19 19:42 EKG normal sinus at 91 bpm. 09/26/19 19:58 Spoke with accepting team. Recommend starting heparin for now. Discharge - Discharge Information Problems reviewed: Yes Clinical Impression/Diagnosis: Right subclavian vein thrombosis - Follow up/Referral Referrals: Marielos Welsh MD [Primary Care Provider] - - Patient Discharge Instructions - Post Discharge Activity
[2019-09-26] MEDS ORDERED: POTASSIUM CHLORIDE TABS 20 MEQ TABLET.ER (FP) PO ONE ×2 (19:43→20:44)
[2019-09-26] MEDS ORDERED: HEPARIN NA (PORCINE) 5,000 UNITS/ML 1ML VIAL IVPUSH ONE (20:01)
[2019-09-26] MEDS ORDERED: traMADol HCL 50 MG TABLET PO ONE (20:14)
--- NOTE | 2019-09-26 20:18 | HP ---
Admitting History and Physical - Primary Care Physician PCP: Dr. Welsh - Admission Chief Complaint: Right arm pain and limited mobility History of Present Illness: 44 year old female with PMHx of GERD, DM, and HTN arrived to ED for progressively worsening R arm pain and weakness for past three days. According to patient on Monday noted with arm, took ibuprofen without relief, next day son noticed she was slurring her speech while talking to him. The episode lasted about 15 minutes and then completely resolved. Next morning R arm pain progressively got worse and increased weakness. Arrived today unable to move the R arm at all. On ROS the pt endorses having chills, R shoulder pain, R arm weakness and intermittent numbness and tingling in her R hand. Patient denies CP , SOB, weakness/ numbness/ tingling in any of her other extremities. History Source: Patient Limitations to Obtaining History: No Limitations - Past Medical History Cardiovascular: Yes: HTN Gastrointestinal: Yes: GERD Endocrine: Yes: Diabetes Mellitus - Past Surgical History Past Surgical History: Yes: - Smoking History Smoking history: Never smoked Have you smoked in the past 12 months: No Aproximately how many cigarettes per day: 0 If you are a former smoker, when did you quit?: 2010 - Alcohol/Substance Use Hx Alcohol Use: No History of Substance Use: reports: None - Social History Usual Living Arrangement: Yes: With Child ADL: Independent History of Recent Travel: No Home Medications - Allergies Allergies/Adverse Reactions: Allergies Allergy/AdvReac Type Severity Reaction Status Date / Time No Known Allergies Allergy Verified 09/26/19 14:08 - Home Medications Home Medications: Ambulatory Orders Amlodipine Besylate [Norvasc -] 10 mg PO DAILY 04/26/19 Hydrochlorothiazide [Hctz -] 25 mg PO ASDIR 04/26/19 Metformin HCl [Glucophage] 500 mg PO BID 04/26/19 Meclizine HCl 12.5 mg PO PRN 09/26/19 Family Medical History Family Hx Cancer: Father (pancreatic ca) Family Hx Cardiac Disorders: Mother (Mother & Father : HTN/ HLD), Father Family Hx Diabetes: Mother, Father Family Hx Nuerologic Problems: Mother (Mother : stroke ) Review of Systems - Review of Systems Constitutional: reports: Chills Eyes: reports: No Symptoms HENT: reports: No Symptoms Neck: reports: No Symptoms Cardiovascular: reports: No Symptoms Respiratory: reports: No Symptoms Gastrointestinal: reports: No Symptoms Genitourinary: reports: No Symptoms Musculoskeletal: reports: Extremity Pain (right arm arm, weakness, and numbness / tingling) Integumentary: reports: No Symptoms Neurological: reports: Numbness, Weakness, Other (slureed speech) Endocrine: reports: No Symptoms Hematology/Lymphatic: reports: No Symptoms Psychiatric: reports: No Symptoms Physical Examination Vital Signs: Vital Signs Temperature 98 F 09/26/19 14:09 Pulse Rate 92 H 09/26/19 16:44 Respiratory Rate 20 09/26/19 16:44 Blood Pressure 127/86 09/26/19 16:44 O2 Sat by Pulse Oximetry (%) 100 09/26/19 16:44 Constitutional: Yes: Calm, Mild Distress Eyes: Yes: Conjunctiva Clear, EOM Intact HENT: Yes: Atraumatic, Normocephalic Neck: Yes: Supple, Trachea Midline Cardiovascular: Yes: Regular Rate and Rhythm Respiratory: Yes: Regular, CTA Bilaterally Gastrointestinal: Yes: Normal Bowel Sounds, Soft Musculoskeletal: Yes: Other (Weakness on R arm, diffculty with movement) Extremities: Yes: Other (Weakness on R arm, diffculty with movement) Edema: No Peripheral Pulses WNL: Yes Neurological: Yes: Weakness (Weakness on R arm, diffculty with movement) Labs: CBC, BMP 09/26/19 15:43 09/26/19 15:43 Imaging - Results Cat Scan: Report Reviewed (CT of head without evidence of hemorrhage or acute pathologic changes.) Ultrasound: Report Reviewed (Upper extremity US positive for subclavian DVT.) EKG: Report Reviewed (EKG normal sinus at 91 bpm.) Problem List - Problems (1) Right subclavian vein thrombosis Code(s): I82.B11 - ACUTE EMBOLISM AND THROMBOSIS OF RIGHT SUBCLAVIAN VEIN (2) Acid reflux Code(s): K21.9 - GASTRO-ESOPHAGEAL REFLUX DISEASE WITHOUT ESOPHAGITIS Qualifiers: Esophagitis presence: without esophagitis Qualified Code(s): K21.9 - Gastro -esophageal reflux disease without esophagitis (3) Diabetes mellitus type 2 in obese Code(s): E11.69 - TYPE 2 DIABETES MELLITUS WITH OTHER SPECIFIED COMPLICATION; E66.9 - OBESITY, UNSPECIFIED (4) Hypertension Code(s): I10 - ESSENTIAL (PRIMARY) HYPERTENSION (5) Slurred speech Code(s): R47.81 - SLURRED SPEECH Assessment/Plan 44 year old female with PMHx of GERD, DM, and HTN arrived to ED for progressively worsening R arm pain and weakness for past three days. # Right arm subclavian DVT # Slurred speech, right side weakness R/O TIA admit to tele, cardiac monitoring CT of head without evidence of hemorrhage or acute pathologic changes. EKG normal sinus at 91 bpm. Upper extremity US positive for . Troponin: negative coags: PTT: 36.4, INR: 1.06 CXR: no acute disease IN ED: given Heparin 6,500 units x1 Given tamadol 50 mg x1 - continue with pain management - continue with anticoagulation (start lovenox 80mg BID, eventually transition to PO anticoagulation) - Elevated extremity - follow up Cardiology in AM - follow up neuro in AM - consider MRI in AM #Hypokalemia - supplement in ED - repeat BMP in AM # HTN -Amlodipine Besylate 10 mg PO DAILY -Hydrochlorothiazide 25 mg PO daily #HLD lipid panel: chol: 237, tri: 231, LDL:157 - will start lipitor 40 mg HS - cardiology will follow in AM # DM - monitor FSBS BID AC - coverage with sliding scale novolog BID AC - follow up hgA1c in AM FEN: NADIR/NCS, correct lytes VTE: started on anticoagulation Dispo: telemetry Visit type - Emergency Visit Emergency Visit: Yes ED Registration Date: 09/26/19 Care time: The patient presented to the Emergency Department on the above date and was hospitalized for further evaluation of their emergent condition. - New Patient This patient is new to me today: Yes Date on this admission: 09/26/19 - Critical Care Critical Care patient: No
[2019-09-26] MEDS ORDERED: traMADol HCL 50 MG TABLET ONE (20:43)
[2019-09-26] MEDS ORDERED: HEPARIN NA (PORCINE) 5,000 UNITS/ML 1ML VIAL ONE (20:44)
[2019-09-26] MEDS ORDERED: IBUPROFEN 400 MG TABLET (FP) PO PRN (20:49)
--- NOTE | 2019-09-26 21:23 | PDOC ---
Attending Attestation - Resident Resident Name: DaríoArianne - ED Attending Attestation I have performed the following: I have examined & evaluated the patient, The case was reviewed & discussed with the resident, I agree w/resident's findings & plan, Exceptions are as noted - HPI HPI: 09/26/19 21:17 44 yo f here with c/o right arm pain, and slurred speech. pt state started in her lower arm about 4 day ago, over the lasta few days has become progressively worse. denies cp or sob. does now have righ sided neck pain. pt states her children noted she had slurred speech last pm, today is improved but not back to her baseline. does feel weak in her right arm , but mostly due to pain. no f/ c no injury that she can recal. no injections or procedures to the shoulder. - Physicial Exam PE: 09/26/19 21:18 awake alert face no swelling. noted right sided trapezial spasm ttp. right shoulder pain on abduction, ttp over lateral anterior aspect. no erythema. no warmth. elbow FROm. wrist NT FrOm 2+ dp/ pt pulses. lungs clear bilat heart rrr no mrg abd soft nt nd ext wwp. nuero 5/5 all four ext. ( right side limited due to pian) CN II - XII intact. vf intact. facies symetric. sensation intact throughout. - Medical Decision Making 09/27/19 01:30 44 yo F with h/o right upper ext pain, previously healthy. pain on exam right arm. differential: clot, jiont disease. msk strain, rotator cuff injury. due to episodic transietn slurred speech, concerns for tia. plan ct head. labs cxr us right upper ext. and shoulder xray. pt with positive dvt right upper ext. due to concerns for slurred speech, may require echo r/o PFO. possible CVA admited. started on heparin. NIH Stroke Scale - Last Known Well Date/Time & Onset Date Last Known Well: 09/23/19 - Initial Evaluation Level of consciousness: Alert Ask patient the month and their age: Answers both correctly Ask patient to open & close eyes; make fist and let go: Obeys both correctly Best gaze (horizontal eye movement): Normal Visual field testing: No visual field loss Facial paresis (Show teeth/raise eyebrows/close eyes tight): Normal symmetrical movement Motor Function: Left Arm: Normal Motor Function: Right Arm: Normal (extends arm 90 (or 45) degrees for 10 seconds without drift Motor Function: Left Leg: Normal (extends leg 30 degrees for 5 seconds without drift) Motor Function: Right Leg: Normal (extends leg 30 degrees for 5 seconds without drift) Limb Ataxia: No ataxia Sensory(Use pinprick test arms,legs,trunk,face/side to side): Normal Best language (Describe picture, name items, read sentences): No Aphasia Dysarthria (read several words): Normal articulation Extinction and Inattention: No abnormality - Total Score NIH Stroke Scale Score: 0
[2019-09-26] MEDS ORDERED: ATORVASTATIN CA 40 MG TABLET (FP) ONE (22:15)
[2019-09-26] MEDS ORDERED: ENOXAPARIN NA (PORCINE) 80 MG/0.8 ML DISP.SYRIN SQ ONE (22:15)
[2019-09-26] MEDS: ATORVASTATIN CA 40 MG TABLET (FP) PO SCH (22:23)
[2019-09-26] MEDS: ENOXAPARIN NA (PORCINE) 80 MG/0.8 ML DISP.SYRIN SQ SCH (22:23)
[2019-09-26] MEDS ORDERED: morphine CARPU-JECT 4 MG/1 ML DISP.SYRIN IVPUSH ONE (22:26)
[2019-09-26] MEDS ORDERED: morphine SULFATE 4 MG/ML VIAL ONE (22:27)
[2019-09-26] MEDS ORDERED: MECLIZINE HCL 12.5 MG TABLET ONE (22:28)
[2019-09-26] MEDS ORDERED: MECLIZINE HCL 12.5 MG TABLET PO ONE (22:44)
[2019-09-27] MEDS ORDERED: IBUPROFEN 400 MG TABLET (FP) PO ONE (03:28)
[2019-09-27 07:31] LABS: HEMATOCRIT 40.9 % (32.4-45.2); MCH 30.9 pg (25.7-33.7); MCHC 34.2 g/dl (32.0-36.0); MEAN CELL VOLUME 90.4 fl (80-96); MEAN PLT VOLUME 8.6 fl (7.5-11.1); PLATELET COUNT 327 K/MM3 (134-434); RBC 4.53 M/mm3 (3.60-5.2); RDW 13.9 % (11.6-15.6); WHITE BLOOD COUNT 9.1 K/mm3 (4.0-10.0)
[2019-09-27 07:32] LABS: BLOOD UREA NITROGEN 18.1 mg/dL (7-18); CREATININE 0.8 mg/dL (0.55-1.3); POTASSIUM 3.7 mmol/L (3.5-5.1)
[2019-09-27] MEDS: traMADol HCL 50 MG TABLET PO PRN (08:30)
[2019-09-27] MEDS ORDERED: traMADol HCL 50 MG TABLET ONE (08:32)
--- NOTE | 2019-09-27 09:09 | PN ---
Progress Note (short form) - Note Progress Note: 44 yo lady with acute right subclavian vein thrombosis associated with right arm weakness and numbness, also reports slurred speech. Symptoms started 4-5 days ago(Monday) Today she feels better, arm is less painful, less weak. CBC, BMP 09/27/19 06:46 09/27/19 06:46 Vital Signs Period Temp Pulse Resp BP Sys/Alvarado Pulse Ox Last 24 Hr 97.7 F-98.0 F 83-100 18-20 109-127/69-93 95-100 s1s2 rrr lungs cta abd soft nt +bs right arm slightly more swollen than left decreased rom and strength due to pain no focal neurological deficit 44 yo f h/o HTN, DM, high cholesterol s/p gastric sleeve this spring/summer no recent right arm manipulation or trauma, no h/o clots or miscarriages sc lovenox vascular evaluation requested dc planning on NOAC if no other procedures planned pap/mammo this year was ok as per pt
[2019-09-27] MEDS: INSULIN SLIDING SCALE (NOVOLOG) 1 VIAL SQ SCH ×2 (09:10→18:30)
[2019-09-27] MEDS: ENOXAPARIN NA (PORCINE) 80 MG/0.8 ML DISP.SYRIN SQ SCH ×2 (10:46→21:37)
[2019-09-27] MEDS: HYDROCHLOROTHIAZIDE 25 MG TABLET (FP) PO SCH (10:46)
[2019-09-27] MEDS: amLODIPine BESYLATE 10 MG TABLET (FP) PO SCH (10:46)
--- NOTE | 2019-09-27 11:44 | EKG ---
Test Reason : Blood Pressure : / mmHG Vent. Rate : 094 BPM Atrial Rate : 094 BPM P-R Int : 156 ms QRS Dur : 078 ms QT Int : 362 ms P-R-T Axes : 060 029 078 degrees QTc Int : 452 ms NORMAL SINUS RHYTHM NORMAL ECG WHEN COMPARED WITH ECG OF 02-OCT-2016 01:28, NONSPECIFIC T WAVE ABNORMALITY NOW EVIDENT IN LATERAL LEADS Confirmed by TIRSO BLANCO MD ([id number]) on 09/27/2019 11:43:37 AM Referred By: Confirmed By:TIRSO BLANCO MD
--- NOTE | 2019-09-27 15:41 | CON.CARD ---
Consult Consult Specialty:: Cardiology Reason for Consultation:: Subclavian thrombus - History of Present Illness History of Present Illness: 44 F with HTN and DM she developed few days of Rt arm pain and weakness. There was mild had swelling. Yesterday was told she was slurring her speech. An upper extremity doppler shows Rt subclavian vein thrombus. She is started on AC. There is no chest pain, dyspnea or palpitations. - History Source History Provided By: Patient Limitations to Obtaining History: No Limitations - Past Medical History Cardio/Vascular: Yes: HTN Gastrointestinal: Yes: GERD Endocrine: Yes: Diabetes Mellitus - Past Surgical History Past Surgical History: Yes: - Alcohol/Substance Use Hx Alcohol Use: No History of Substance Use: reports: None - Smoking History Smoking history: Never smoked Have you smoked in the past 12 months: No Aproximately how many cigarettes per day: 0 If you are a former smoker, when did you quit?: 2010 - Social History ADL: Independent History of Recent Travel: No Home Medications - Allergies Allergies/Adverse Reactions: Allergies Allergy/AdvReac Type Severity Reaction Status Date / Time No Known Allergies Allergy Verified 09/26/19 14:08 - Home Medications Home Medications: Ambulatory Orders Amlodipine Besylate [Norvasc -] 10 mg PO DAILY 04/26/19 Hydrochlorothiazide [Hctz -] 25 mg PO ASDIR 04/26/19 Metformin HCl [Glucophage] 500 mg PO BID 04/26/19 Meclizine HCl 12.5 mg PO PRN 09/26/19 Review of Systems - Review of Systems Constitutional: reports: No Symptoms Eyes: reports: No Symptoms HENT: reports: No Symptoms Neck: reports: No Symptoms Respiratory: reports: No Symptoms Gastrointestinal: reports: No Symptoms Genitourinary: reports: No Symptoms Integumentary: reports: No Symptoms Neurological: reports: Change in Speech Endocrine: reports: No Symptoms Vital Signs: Vital Signs Temperature 97.7 F 09/27/19 07:16 Pulse Rate 83 09/27/19 07:16 Respiratory Rate 18 09/27/19 07:16 Blood Pressure 109/69 09/27/19 07:16 O2 Sat by Pulse Oximetry (%) 95 09/27/19 07:16 Constitutional: Yes: Well Nourished, No Distress Eyes: Yes: Conjunctiva Clear, EOM Intact HENT: Yes: Atraumatic, Normocephalic Neck: Yes: Supple, Trachea Midline Respiratory: Yes: Regular, CTA Bilaterally Gastrointestinal: Yes: Normal Bowel Sounds Cardiovascular: Yes: Regular Rate and Rhythm JVD: No Carotid Bruit: No PMI: Non-Displaced Heart Sounds: Yes: S1, S2 Murmur: No: Systolic Murmur, Diastolic Murmur Edema: Yes Edema: RUE: Trace Neurological: Yes: Alert, Oriented ...Motor Strength: RUE (4/5) - Other Data Labs, Other Data: CBC, BMP 09/27/19 06:46 09/27/19 06:46 INR, PTT INR 1.06 (0.83-1.09) 09/26/19 15:43 Troponin, BNP 09/26/19 15:43 Troponin I < 0.02 Troponin, BNP 09/26/19 15:43 Troponin I < 0.[address] T changes. Problem List - Problems (1) Right subclavian vein thrombosis Code(s): I82.B11 - ACUTE EMBOLISM AND THROMBOSIS OF RIGHT SUBCLAVIAN VEIN (2) Slurred speech Code(s): R47.81 - SLURRED SPEECH Assessment/Plan 44 F Dm, HTN with Rt arm pain, weakness and swelling with transient slurred speech. Found to have Rt subclavian vein. thrombus. Thrombophilia evaluation Rule out thoracic outlet syndrome. Neuro eval. If the MRI shows a stroke, would send for echo with bubble study. Continue AC Will see as needed. Please reconsult if any questions
--- NOTE | 2019-09-27 16:41 | CONSULT ---
- Consultation REQUESTING PROVIDER: CONSULT REQUEST: We have been asked to surgically evaluate this patient for Rt subclavian vein thrombus. PCP:Marielos Welsh HISTORY OF PRESENT ILLNESS: Vascular surgery was consulted to evaluate 44yo F h/o Rt subclavian vein thrombus. Pt states that she started having pain and tingling in her Rt arm starting Sunday 09/23, that got progressively worse and was associated with some dizziness and intermittent facial weakness which is resolved at this point. Pt denies any trauma or recent venous catheters. Pt denies h/o DVT or blood clots in the past. Pt no history of vascular disease. Former smoker quit 5 years ago. PMHx: HTN, DM Home Medications Medication Instructions Recorded Amlodipine Besylate [Norvasc -] 10 mg PO DAILY 04/26/19 Hydrochlorothiazide [Hctz -] 25 mg PO ASDIR 04/26/19 Metformin HCl [Glucophage] 500 mg PO BID 04/26/19 Meclizine HCl 12.5 mg PO PRN 09/26/19 Allergies Allergy/AdvReac Type Severity Reaction Status Date / Time No Known Allergies Allergy Verified 09/26/19 14:08 REVIEW OF SYSTEMS: CONSTITUTIONAL: Absent: fever, chills, diaphoresis, generalized weakness, malaise, loss of appetite, weight change CARDIOVASCULAR: Absent: chest pain, syncope, palpitations, irregular heart rate, lightheadedness , peripheral edema RESPIRATORY: Absent: cough, shortness of breath, dyspnea with exertion, wheezing, stridor, hemoptysis MUSCULOSKELETAL: Absent: myalgia, arthralgia, joint swelling, back pain, neck pain SKIN: Absent: rash, itching, pallor HEMATOLOGIC/IMMUNOLOGIC: Absent: easy bleeding, easy bruising, lymphadenopathy PHYSICAL EXAM: GENERAL: Awake, alert, and fully oriented, in no acute distress. HEAD: Normal with no signs of trauma. EYES: PERRL, sclera anicteric, conjunctiva clear. NECK: Normal ROM, LUNGS: Clear to auscultation bilat anteriorly. No wheezes, and no crackles. No accessory muscle use. HEART: Regular rate and rhythm. No murmurs UPPER EXTREMITIES: 2+ pulses, warm, well-perfused. No cyanosis. Cap refill <2 seconds. No peripheral edema. Rt arm weaker than Left (may be lack of effort) LOWER EXTREMITIES: 2+ pulses, warm, well-perfused. No calf tenderness. No peripheral edema. NEUROLOGICAL: Normal speech, gait not observed. PSYCH: Cooperative. Good eye contact. Appropriate mood and affect. SKIN: Warm, dry, normal turgor, no rashes or lesions noted. Vital Signs Temperature 97.7 F 09/27/19 07:16 Pulse Rate 83 09/27/19 07:16 Respiratory Rate 18 09/27/19 07:16 Blood Pressure 109/69 09/27/19 07:16 O2 Sat by Pulse Oximetry (%) 95 09/27/19 07:16 Lab Results WBC 9.1 K/mm3 (4.0-10.0) 09/27/19 06:46 RBC 4.53 M/mm3 (3.60-5.2) 09/27/19 06:46 Hgb 14.0 GM/dL (10.7-15.3) 09/27/19 06:46 Hct 40.9 % (32.4-45.2) 09/27/19 06:46 MCV 90.4 fl (80-96) 09/27/19 06:46 MCHC 34.2 g/dl (32.0-36.0) 09/27/19 06:46 RDW 13.9 % (11.6-15.6) 09/27/19 06:46 Plt Count 327 K/MM3 (134-434) 09/27/19 06:46 Sodium 136 mmol/L (136-145) 09/27/19 06:46 Potassium 3.7 mmol/L (3.5-5.1) 09/27/19 06:46 Chloride 101 mmol/L (98-107) 09/27/19 06:46 Carbon Dioxide 29 mmol/L (21-32) 09/27/19 06:46 Anion Gap 6 MMOL/L (8-16) L 09/27/19 06:46 BUN 18.1 mg/dL (7-18) H 09/27/19 06:46 Creatinine 0.8 mg/dL (0.55-1.3) 09/27/19 06:46 Random Glucose 172 mg/dL (74-106) H 09/27/19 06:46 Calcium 9.0 mg/dL (8.5-10.1) 09/27/19 06:46 Blood Type O POSITIVE 09/26/19 15:43 Antibody Screen Negative 09/26/19 15:43 INR 1.06 (0.83-1.09) 09/26/19 15:43 Problem List - Problems (1) Right subclavian vein thrombosis Assessment/Plan: Plan -no need for acute surgical intervention at this time recommend anticoagulation for 3 months. -it is unlikely that pt's symptoms are linked to thrombus recommend evaluation by Neuro for possible TIAs -pt should follow up with Dr. Bush in Vascular clinic for reevaluation Pt seen and examined with Dr. Bush who agrees with plan. Code(s): I82.B11 - ACUTE EMBOLISM AND THROMBOSIS OF RIGHT SUBCLAVIAN VEIN
[2019-09-27] MEDS: ATORVASTATIN CA 40 MG TABLET (FP) PO SCH (21:37)
[2019-09-28 02:58] LABS: URINE APPEARANCE CLOUDY; URINE BILIRUBIN NEGATIVE (NEGATIVE); URINE COLOR YELLOW; URINE GLUCOSE (UA) NEGATIVE (NEGATIVE); URINE KETONE NEGATIVE (NEGATIVE); URINE LEUK ESTERASE NEGATIVE (NEGATIVE); URINE NITRITE NEGATIVE (NEGATIVE); URINE PROTEIN NEGATIVE (NEGATIVE); URINE UROBILINOGEN 0.2 mg/dL (0.2-1.0)
[2019-09-28] MEDS: INSULIN SLIDING SCALE (NOVOLOG) 1 VIAL SQ SCH ×3 (06:39→18:47)
[2019-09-28] MEDS ORDERED: FLU VACCINE QUAD 60 MCG/0.5 ML (MDV 19-20) IM ONE (10:00)
[2019-09-28] MEDS: ENOXAPARIN NA (PORCINE) 80 MG/0.8 ML DISP.SYRIN SQ SCH ×2 (10:28→21:49)
[2019-09-28] MEDS: amLODIPine BESYLATE 10 MG TABLET (FP) PO SCH (10:28)
[2019-09-28] MEDS: HYDROCHLOROTHIAZIDE 25 MG TABLET (FP) PO SCH (10:28)
--- NOTE | 2019-09-28 12:55 | PN ---
Progress Note (short form) - Note Progress Note: 44 yo lady with acute right subclavian vein thrombosis associated with right arm weakness and numbness, also reports slurred speech. Symptoms started 4-5 days ago(Monday) she feels better, arm is less painful, less weak. Active Medications Amlodipine Besylate (Norvasc -) 10 mg PO DAILY [facility] [place] Last Admin: 09/28/19 10:28 Dose: 10 mg Atorvastatin Calcium (Lipitor -) 40 mg PO HS [facility] [place] Last Admin: 09/27/19 21:37 Dose: 40 mg Enoxaparin Sodium (Lovenox -) 80 mg SQ BID [facility] [place] Last Admin: 09/28/19 10:28 Dose: 80 mg Hydrochlorothiazide (Hctz -) 25 mg PO DAILY [facility] [place] Last Admin: 09/28/19 10:28 Dose: 25 mg Ibuprofen (Motrin -) 400 mg PO Q6H PRN PRN Reason: PAIN LEVEL 1-5 Last Admin: 09/27/19 03:34 Dose: 400 mg Insulin Aspart (Novolog Vial Sliding Scale -) 1 vial SQ BIDAC [facility] [place]; Protocol Last Admin: 09/28/19 06:39 Dose: Not Given Tramadol HCl (Ultram -) 50 mg PO Q8H PRN PRN Reason: PAIN LEVEL 6-10 Last Admin: 09/27/19 08:30 Dose: 50 mg Vital Signs Period Temp Pulse Resp BP Sys/Alvarado Pulse Ox Last 24 Hr 98 F-98.5 F 72-87 18-20 112-136/74-85 98-100 s1s2 rrr lungs cta abd soft nt +bs right arm slightly more swollen than left rom, strength better than yesterday no focal neurological deficit 44 yo f h/o HTN, DM, high cholesterol s/p gastric sleeve this spring/summer no recent right arm manipulation or trauma, no h/o clots or miscarriages sc lovenox awaiting MRI brain ro tia consults appreciated dc planning on NOAC pap/mammo this year was ok as per pt
--- NOTE | 2019-09-28 18:53 | CONSULT ---
Consult - text type - Consultation Consultation Note: NEUROLOGY CONSULTATION is greatly appreciated: Events and neuroimaging reviewed. Patient examined. This 44 yo RH woman with 4 children has PMH of HTN, Chol and DM. Maintained on: Amlodipine; Hydrochlorothiazide; and Metformin HCl Seen by me in evaluation of Migraine headaches approx 5 years ago which resolved on Topiramate and patient discontinued Rx. Unfortunately, headaches have recurred over the last few years and now occur on a daily basis, transiently improved with ibuprofen. + FH of GARCIA's in 27 yo son. 2-3 years of episodic aching pains, numbness and tingling in legs at night, interrupting sleep. 1-2 years of grinding teeth at night. Now 5 days of waxing and waning aching pains and paresthesiae right arm. Began while watching the [employer]. Initially improved by movement and massage. Have worsened over the last few days, worse at night, interrupting sleep. CT and MRI of head (reviewed): Normal Duplex doppler of the right arm: Right subclavian vein thrombus. On Lovenox MARCO: Normal. No right arm swelling, color change, etc. Neuro: MS/Speech: Normal CN: II-XII: normal Motor: No drift or tremor. FMT shows normal strength, tone and bulk. Normal reflexes. Toes downgoing. Coord: No FTN dystaxia Sensory: Normal. Romberg neg Gait: Normal IMP: Normal neurological exam. Migraine headaches. Now chronic daily headache syndrome (CDHS) due to Ibuprofen rebound headaches. Restless Limbs Syndrome (RLS). Interaction with possible subclavian DVT is uncertain. SUGGEST: Await consult of Dr. Bush. If DVT is confirmed, anticoagulation with coumadin or NOAC x 6 mos and w/u for hypercoaguable state. Begin Topiramate 25 mg PO BID for migraine prophylaxis. Increase to 50 BID in 5 days. Begin Pramipexole 0.125 mg PO BID starting tonight and increase to 0.25 BID in 4 days. Check Fe++, TIBC, Protein C, Protein S, anticardiolipin antibodies, etc. Thank you very much, Dave Reza MD
[2019-09-28] MEDS: ATORVASTATIN CA 40 MG TABLET (FP) PO SCH (21:48)
[2019-09-29] MEDS: traMADol HCL 50 MG TABLET PO PRN (01:24)
[2019-09-29] MEDS: INSULIN SLIDING SCALE (NOVOLOG) 1 VIAL SQ SCH (06:36)
[2019-09-29] MEDS: amLODIPine BESYLATE 10 MG TABLET (FP) PO SCH (09:55)
[2019-09-29] MEDS: HYDROCHLOROTHIAZIDE 25 MG TABLET (FP) PO SCH (09:55)
[2019-09-29] MEDS: ENOXAPARIN NA (PORCINE) 80 MG/0.8 ML DISP.SYRIN SQ SCH (09:56)
[2019-09-29 09:59] VITALS: BP 105/76; PULSE 76; TEMP 98
--- NOTE | 2019-09-29 10:19 | DS ---
Physical Examination Vital Signs: Vital Signs Temperature 98 F 09/29/19 09:00 Pulse Rate 76 09/29/19 09:00 Respiratory Rate 18 09/29/19 09:00 Blood Pressure 105/76 09/29/19 09:00 O2 Sat by Pulse Oximetry (%) 98 09/29/19 09:00 Constitutional: Yes: Well Nourished, Calm, Obese HENT: Yes: Normocephalic Neck: Yes: Trachea Midline Cardiovascular: Yes: Regular Rate and Rhythm Respiratory: Yes: CTA Bilaterally Gastrointestinal: Yes: Normal Bowel Sounds, Soft, Abdomen, Obese Musculoskeletal: Yes: WNL Extremities: Yes: Other (Right upper extremity swelling present, better than on admission, decreased strength due to pain) Edema: No Labs: CBC, BMP 09/27/19 06:46 09/27/19 06:46 Discharge Summary Problems reviewed: Yes Reason For Visit: THROMBOSIS OF RIGHT SUBCLAVIAN VEIN Current Active Problems Right subclavian vein thrombosis (Acute) Slurred speech (Acute) Hospital Course: admitted for rue pain and numbness and transient slurred speech echo unremarkable, brain MRI, head CT normal, no CVA or TIA US RUE shows acute subclavian DVT pt was seen by cardiology/neurology/vascular evaluation consults appreciated started lovenox and is transitioned over to NOAC medically stable to dc home with close outpt follow up Condition: Good - Instructions Referrals: Marielos Welsh MD [Primary Care Provider] - Disposition: HOME - Home Medications Comprehensive Discharge Medication List: Ambulatory Orders Amlodipine Besylate [Norvasc -] 10 mg PO DAILY #30 tablet 09/29/19 Apixaban [Eliquis] 10 mg PO Q12H #28 tablet 09/29/19 Atorvastatin Ca [Lipitor] 40 mg PO HS #30 tablet 09/29/19 Hydrochlorothiazide [Hctz -] 25 mg PO DAILY #30 tablet 09/29/19 Metformin HCl [Glucophage] 500 mg PO BID #60 tablet 09/29/19
--- NOTE | 2019-09-30 01:07 | EKG ---
Test Reason : Blood Pressure : / mmHG Vent. Rate : 091 BPM Atrial Rate : 091 BPM P-R Int : 162 ms QRS Dur : 088 ms QT Int : 390 ms P-R-T Axes : 047 022 053 degrees QTc Int : 479 ms NORMAL SINUS RHYTHM NORMAL ECG WHEN COMPARED WITH ECG OF 26-SEP-2019 15:40, NO SIGNIFICANT CHANGE WAS FOUND Confirmed by MICHAEL WIN MD ([id number]) on 09/30/2019 1:06:59 AM Referred By: Confirmed By:MICHAEL WIN MD
== END 2019-09-29 12:09 | disposition home or self-care (01) | DRG 197 ==
LOC: JER 14:02 → JERFT 14:02 → JERBED 19:37 → J4W 09-27 20:23
PROVIDERS: ADMIT Internal Medicine; ATTEND Internal Medicine
DX: I82.B11 Acute embolism and thrombosis of right subclavian vein (principal); E87.6 Hypokalemia; E78.5 Hyperlipidemia, unspecified; E11.9 Type 2 diabetes mellitus without complications; R47.81 Slurred speech; I10 Essential (primary) hypertension; G43.909 Migraine, unspecified, not intractable, without status migrainosus; G25.81 Restless legs syndrome; E66.9 Obesity, unspecified; Z68.35 Body mass index [BMI] 35.0-35.9, adult; K21.9 Gastro-esophageal reflux disease without esophagitis
CPT/HCPCS: 36415; 70450-TC; 70551-TC; 71045-TC-FY; 80048; 80053; 81003; 82465; 82550; 82962; 83036; 83718; 83721; 84478; 84484; 85025; 85027; 85610; 85730; 86850; 86900; 86901; 87086; 93005; 93010; 93971; 99285-25; G0008; J1644; Q2036

== ENCOUNTER 2022-05-04 00:22 | Emergency (ER) | payer OTHER ==
[2022-05-04 00:42] VITALS: TEMP 99.5; BMI 35.2
[2022-05-04] MEDS ORDERED: SODIUM CHLORIDE 0.9% 1000 ML INFUS.BAG IV ONE (00:56)
[2022-05-04] MEDS ORDERED: PROCHLORPERAZINE INJECTION 10 MG/2 ML VIAL IVPB ONE (00:56)
[2022-05-04] MEDS ORDERED: PROCHLORPERAZINE INJECTION 10 MG/2 ML VIAL ONE (00:58)
[2022-05-04 01:03] LABS: BASO % 1.4 % (0-2.0); EOS % 1.1 % (0-4.5); HEMATOCRIT 47.2 % (32.4-45.2); HEMOGLOBIN 16.5 GM/dL (10.7-15.3); MCH 32.6 pg (25.7-33.7); MCHC 34.9 g/dl (32.0-36.0); MEAN CELL VOLUME 93.5 fl (80-96); MEAN PLT VOLUME 8.4 fl (7.5-11.1); NEUT % 68.5 % (42.8-82.8); PLATELET COUNT 312 10^3/uL (134-434); RBC 5.05 M/mm3 (3.60-5.2); WHITE BLOOD COUNT 10.4 K/mm3 (4.0-10.0)
[2022-05-04 01:15] LABS: INR 1.28 (0.83-1.09); PROTHROMBIN TIME (PATIENT) 14.7 SEC (9.7-13.0)
[2022-05-04 01:18] LABS: ACTIVATED PTT 39.4 SECONDS (25.2-36.5)
[2022-05-04 01:23] LABS: CHLORIDE 104 mmol/L (98-107); SODIUM 140 mmol/L (136-145)
[2022-05-04 01:25] LABS: CALCIUM 9.1 mg/dL (8.5-10.1)
[2022-05-04 01:27] LABS: ALBUMIN 3.7 g/dl (3.4-5.0); ANION GAP 13 MMOL/L (8-16); BLOOD UREA NITROGEN 10.6 mg/dL (7-18); CO2 23 mmol/L (21-32); GLUCOSE,RANDOM 183 mg/dL (74-106); MAGNESIUM 2.2 mg/dL (1.8-2.4)
[2022-05-04 01:29] LABS: CREATININE 1.1 mg/dL (0.55-1.3); SGOT/AST 21 U/L (15-37); SGPT/ALT 23 U/L (13-61)
[2022-05-04 01:31] LABS: BILIRUBIN,TOTAL 0.5 mg/dL (0.2-1)
[2022-05-04 01:32] LABS: ALK PHOS 86 U/L (45-117)
[2022-05-04 03:38] VITALS: BP 118/74; PULSE 90
== END 2022-05-04 03:39 | disposition home or self-care (01) ==
LOC: JER 00:22
PROC: 3E033GC Introduction of Other Therapeutic Substance into Peripheral Vein, Percutaneous Approach (ICD-10-PCS; principal; 2022-05-04)
DX: R51.9 Headache, unspecified (principal); R25.8 Other abnormal involuntary movements
CPT/HCPCS: 36415; 70450-TC; 71045-TC-FY; 80053; 83735; 84484; 84703; 85025; 85610; 85730; 93005; 93010; 99285-25

== ENCOUNTER 2023-09-13 22:38 | Emergency (ER) | payer OTHER ==
[~2023-09-13 22:38] MED LIST: LIDOCAINE PATCH REMOVAL MC SCH
[2023-09-13 22:43] VITALS: BP 161/94; PULSE 99; RESP 18; TEMP 98.1; BMI 33.2
[2023-09-13] MEDS ORDERED: IBUPROFEN 600 MG TABLET (FP) PO ONE ×2 (22:51→22:56)
[2023-09-13] MEDS ORDERED: LIDOCAINE 4% PATCH TP ONE ×2 (22:51→22:56)
== END 2023-09-14 00:15 | disposition home or self-care (01) ==
LOC: JER 22:38
DX: M54.50 Low back pain, unspecified (principal); V49.40XA Driver injured in collision with unspecified motor vehicles in traffic accident, initial encounter; Y92.9 Unspecified place or not applicable
CPT/HCPCS: 99284-25